=== PATIENT | male | born 1950 | race Caucasian/White ===

== ENCOUNTER 2017-04-20 16:01 | Emergency (ER) | payer MEDICARE ==
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
[2017-04-20 16:24] VITALS: BP 140/61
--- NOTE | 2017-04-20 21:43 | UC ---
Progress - Progress Note Progress Note: no change. patient on bactrim from pcp and was given a rx for silvadene if needed.
--- NOTE | 2017-04-23 07:17 | ED ---
Progress - Progress Note Progress Note: no change. patient on bactrim from pcp and was given a rx for silvadene if needed. 04/23/17 NO CHANGE Course/Dx - Diagnoses Provider Diagnoses: Wound cellulitis
== END 2017-04-20 16:37 | disposition home or self-care (01) ==
LOC: UCCORT 16:01
DX: T24.031A Burn of unspecified degree of right lower leg, initial encounter (principal); X58.XXXA Exposure to other specified factors, initial encounter
CPT/HCPCS: 87070; 87077; 87186; 87205; 87640; 87641; 99203; G0463